=== PATIENT | male | born 1980 | race Caucasian/White ===

== ENCOUNTER 2016-11-05 20:24 | Emergency (ER) | payer OTHER ==
[2016-11-05 20:34] VITALS: BP 116/73
[2016-11-05] MEDS ORDERED: predniSONE TAB* 20 MG PO ONE (20:53)
--- NOTE | 2016-11-05 20:53 | UC ---
Skin Complaint HPI - HPI Summary HPI Summary: 36 YEAR OLD MALE PRESENTS WITH COMPLAINS OF RASH ON HIS LEFT AXILLA. - History of Current Complaint Chief Complaint: UCRash Time Seen by Provider: 11/05/16 20:46 Stated Complaint: RASH Hx Obtained From: Patient Onset/Duration: Sudden Onset Skin Exposure Onset/Duration: Hours Ago Onset Severity: Moderate Current Severity: Moderate Pain Scale Used: 0-10 Numeric - 5 Location: Diffuse - Allergy/Home Medications Allergies/Adverse Reactions: Allergies Allergy/AdvReac Type Severity Reaction Status Date / Time peanuts Allergy Vomiting Uncoded 11/05/16 20:34 Home Medications: Home Medications Cetirizine* [ZyrTEC 10 MG TAB*] 1 cap PO DAILY 11/05/16 [History Confirmed 11/05] Review of Systems Constitutional: Negative Skin: Rash Eyes: Negative ENT: Negative Respiratory: Negative Cardiovascular: Negative Gastrointestinal: Negative Genitourinary: Negative Motor: Negative Neurovascular: Negative Musculoskeletal: Negative Neurological: Negative Psychological: Negative All Other Systems Reviewed And Are Negative: Yes PMH/Surg Hx/FS Hx/Imm Hx - Surgical History Surgical History: Yes Surgery Procedure, Year, and Place: Tonsils - Family History Known Family History: Positive: None - Social History Alcohol Use: Occasionally Substance Use Type: None Smoking Status (MU): Never Smoked Tobacco Physical Exam Triage Information Reviewed: Yes Vital Signs: Initial Vital Signs Temp 36.0 C 11/05/16 20:31 Pulse 82 11/05/16 20:31 Resp 12 11/05/16 20:31 BP 116/73 11/05/16 20:31 Pulse Ox 99 11/05/16 20:31 Vital Signs Reviewed: Yes Eye Exam: Normal ENT Exam: Normal Dental Exam: Normal Neck exam: Normal Neck: Positive: 1 Respiratory Exam: Normal Cardiovascular Exam: Normal Abdominal Exam: Normal Musculoskeletal Exam: Normal Neurological Exam: Normal Psychological Exam: Normal Skin: Positive: rashes Course/Dx - Diagnoses Provider Diagnoses: RASH. CONTACT DERMATITIS Discharge - Discharge Plan Condition: Stable Disposition: HOME Prescriptions: Cephalexin CAP* [Keflex CAP*] 500 mg PO TID #30 cap Clobetasol Propionate [Temovate] 0.05 % TOPICAL BID PRN #45 gm PRN Reason: Itching Methylprednisolone [Medrol Dosepak 4 MG*] 4 mg PO .SEE МАРИНА INSTRUCTION #21 tab Patient Education Materials: Urticaria (ED), Acute Rash (ED) Referrals: Kimmy Bonilla [Medical Doctor] -
[2016-11-05] MEDS ORDERED: LoraTADine TAB(NF) 10 MG TAB (AUTOSUB to CETIRIZINE) PO ONE (20:55)
== END 2016-11-05 21:06 | disposition home or self-care (01) ==
LOC: UCEAST 20:24
DX: L25.9 Unspecified contact dermatitis, unspecified cause (principal); R21 Rash and other nonspecific skin eruption
CPT/HCPCS: 99202; A9270-GY; G0463; J7512